=== PATIENT | male | born 1990 | race Caucasian/White ===

== ENCOUNTER 2018-03-17 00:10 | Emergency (ER) | payer OTHER ==
[2018-03-17] MEDS ORDERED: DEXAMETHASONE SOD PHOSPHATE 10MG/ML 1ML VIAL ONE (00:26)
[2018-03-17] MEDS ORDERED: KETOROLAC TROMETHAMINE 60 MG/2 ML VIAL ONE (00:27)
[2018-03-17] MEDS ORDERED: ORPHENADRINE CITRATE 30 MG/ML ML ONE (00:27)
== END 2018-03-17 01:08 | disposition home or self-care (01) ==
LOC: EDH 00:10
DX: S33.5XXA Sprain of ligaments of lumbar spine, initial encounter (principal); X58.XXXA Exposure to other specified factors, initial encounter; Y93.89 Activity, other specified; Y92.89 Other specified places as the place of occurrence of the external cause; Y99.8 Other external cause status
CPT/HCPCS: 96372 ×3; 99284; J1100; J1885; J2360